=== PATIENT | male | born 1970 | race Two or more races ===

== ENCOUNTER 2025-03-17 07:30 | Emergency (ER) | payer OTHER, SELFPAY ==
[2025-03-17 07:31] VITALS: BMI 30.4
[2025-03-17 07:41] VITALS: BP 123/93; PULSE 88; RESP 18; TEMP 36.6; O2SAT 96
--- NOTE | 2025-03-17 07:57 | PD.EDEPIST ---
ED Epistaxis RME/HPI General Chief complaint: Epistaxis/Nasal Foreign Body Stated complaint: NOSEBLEED SINCE 1 AM UNABLE TO STOP Time Seen by Provider: 03/17/25 07:44 Arrival date/time: 03/17/25 07:30 RME / HPI RME / HPI Narrative: 54-year-old male presenting with intermittent right-sided nasal bleeding that began yesterday afternoon, initially resolved, and then recurred at 01:00 today. Patient denies other acute symptoms and reports a recent upper respiratory infection with rhinorrhea last week. Denies known past medical history. Patient denies use of any medications. Bleeding on and off since 1am. Related Data Allergies Allergy/AdvReac Type Severity Reaction Status Date / Time No Known Allergies Allergy Verified 03/17/25 07:33 Review of Systems Review of Systems Systems Reviewed: All systems reviewed, normal except as documented ED Exam Narrative Physical exam: General: Sitting out of bed, nontoxic appearance. Eyes: Appear normal with no scleral icterus. HENT: Head normocephalic, atraumatic, extraocular movements intact; slight oozing from medial right nare; no bleeding from left nare. Skin: Warm, dry, and intact. Neurologic: No altered mental status, speech is fluent, no acute deficits. Psychological: Cooperative and participatory with examination. Course Course Course Narrative: 1010h: Checked on patient, he is resting comfortably in bed no acute distress. TXA soaked gauze packing was removed with no further bleeding demonstrated. Vitally stable. Okay for discharge home at this time. Strict return precautions were advised for any worsening symptoms. Quality Measures none Orders Category Date Time Status Silver Nitrate Applicators Med 03/17/25 07:54 Discontinued 2 appl TOP X1 ONE Tranexamic Acid Inj Med 03/17/25 08:08 Discontinued 1,000 mg TOP NOW ONE Vital Signs Vital signs: Vital Signs Temperature 97.9 F 03/17/25 07:41 Pulse Rate 88 03/17/25 07:41 Respiratory Rate 18 03/17/25 07:41 Blood Pressure 123/93 H 03/17/25 07:41 Pulse Oximetry (%) 96 03/17/25 07:41 Oxygen Delivery Method Room Air 03/17/25 07:41 Epistaxis MDM Narrative MDM Narrative:: This is a 54-year-old male presenting with intermittent right-sided epistaxis since elastic attacher chainstitch, with history of recent nasal trauma and prior upper respiratory infection. On examination, he is hemodynamically stable and nontoxic, with slight oozing from the medial right nare and no active bleeding elsewhere. Silver nitrate was applied to the right nasal mucosa with mild improvement, and topical tranexamic acid gauze was subsequently planned and applied. On re-evaluation after topical tranexamic acid, there was resolution of epistaxis. Given the history of recent trauma and anticoagulant use, posterior bleeding and coagulopathy were considered in the differential. No evidence of posterior pharyngeal bleeding or concerning findings for tumor were noted on exam. CT imaging was considered due to trauma history but deferred at this time. Patient is stable for discharge with return precautions and follow-up as needed. Patient data External records reviewed:: None Clinical information provided by:: patient Social determinants that could affect healthcare access:: none Patient has the following chronic illnesses:: none How is presenting disease/condition affected by chronic disease/condition?: no chronic disease Evaluation data The following diagnostics were reviewed and interpreted by me:: other (specify) Lab and/or radiology exams considered but not ordered:: none Interpretation Summary: as above Medications / Prescriptions Medications or Prescriptions considered but not ordered:: none Medication administrations:: Medication Administration History Discontinued Medications Silver Nitrate (Silver Nitrate 1 Appl Ea) 2 appl TOP X1 ONE Stop: 03/17/25 07:55 Last Admin: 03/17/25 08:06 Dose: 2 appl Documented By: HONEY Comments: med given by Dr. Akers Tranexamic Acid (Tranexamic Acid Inj 1,000 Mg/10 Ml Vial) 1,000 mg TOP NOW ONE Stop: 03/17/25 08:09 Last Admin: 03/17/25 08:13 Dose: 1,000 mg Documented By: HONEY . Consultations Consultation(s) initiated? (list below): No Diagnosis Epistaxis Differential Diagnosis: anterior epistaxis and posterior epistaxis Most likely diagnosis given after review of the tests above:: Anterior epistaxis Admission Indicated Admission indicated?: not indicated Admission Request Was there a request for admission?: No Disposition Plan Disposition Plan: Discharge Discharge Attestation Discharge Attestation: The patient and all family members were given an opportunity to ask questions and understood the discharge instructions. Discharge instructions specifically effects, indications for sooner follow up or return to the emergency department, and the expected course of current diagnosis. Patient condition: Stable Discharge Plan Plan Patient Disposition: HOME (Self Care) Patient condition on transfer: Stable Prescriptions/Referrals Referrals: No Primary/Family,Physician [Primary Care Provider] - In 1 week Problem List Clinical Impression: Epistaxis Patient/Caregiver Discharge Instructions Education Materials: ED Epistaxis (Adult) Additional Instructions: May use visine AC eye drops as needed for itchy eyes. Return to ED for any worsening symptoms. Algunos principios generales de dexter que pueden ayudarte son los principios de ADELANTE: Agua: (beber suficiente agua fresca para mantenerse hidratado, priorizando el agua en lugar de refrescos, caf?, t?, jugos, etc.). [place] (descansar adecuadamente por la noche, acostarse unas horas antes de la medianoche y evitar las pantallas, la televisi?n y la m?angel luis florencia nando antes de acostarse, as? alexandr las comidas pesadas nando antes de acostarse). Ejercicio: (ejercicio/caminatas diarias seg?n la tolerancia). Tessie solar: (exponer la piel al meka meaghan 15-20 minutos aproximadamente, temprano por la ma?abhi y al atardecer, para obtener los beneficios de la vitamina D). Aire (ejercicios de respiraci?n profunda temprano por la ma?abhi al aire sofia). Nutricion: (consumir per dieta a base de plantas, evitar las frandy en general y los alimentos altamente procesados). Templanza (evitar el alcohol, las drogas il?citas, las bebidas con cafe?na, fumar, etc.). Paulette en Nishant (dedicar tiempo diariamente al estudio b?blico y la oraci?n: la contemplaci?n tiene beneficios para la dexter). Recursos adicionales que pueden ser ?gina: [email or web address], consulte la secci?n de recursos y seminarios. Print Language: Irish Stand Alone Forms: Elen Award Info., Patient Portal Info Letter
[2025-03-17] MEDS: SILVER NITRATE 1 APPL EA 2 APPL TOP (08:06)
[2025-03-17] MEDS: TRANEXAMIC ACID INJ 1,000 MG/10 ML VIAL 1000 MG TOP (08:13)
[2025-03-17 10:23] VITALS: BP 129/93; PULSE 64; RESP 16; TEMP 36.7; O2SAT 97
== END 2025-03-17 10:24 | disposition home or self-care (01) ==
PROVIDERS: Emergency Provider Family Medicine
DX: R04.0 Epistaxis (principal)
CPT/HCPCS: 99281; J3490